=== PATIENT | female | born 1955 | race Caucasian/White ===

== ENCOUNTER 2017-08-29 14:52 | Observation (INO) | payer OTHER ==
[~2017-08-29] VITALS: Ht 167.6 cm; Wt 60.9 kg
--- NOTE | ~2017-08-29 | DS ---
PATIENT:KAYA GARDNER :51 MEDICAL RECORD: [id number] DISCHARGE SUMMARY ADMISSION DATE: 08/29/17 DISCHARGE DATE: 08/30/17 DIAGNOSES: 1. Ventricular fibrillation. 2. ICD. 3. Cardiomyopathy. HISTORY OF PRESENT ILLNESS: Mrs. Gardner is visiting from out of town. She has a nonischemic cardiomyopathy. [facility] She had a defibrillator discharge times 2. She presented to the Emergency Room. Her defibrillator was interrogated. She had ventricular fibrillation. With the addition of Cordarone, she had an IV load as well as p.o. She had no further dysrhythmias, was discharged home with Cordarone 200 mg b.i.d. She will follow up with her location worker in [place] in 2 days. TRANSINT:[id number] Voice Confirmation ID: [id number] DOCUMENT ID: [id number] NOHEMI MEDINA MD at 0956 CC: [id number] DICTATION DATE: 08/30/17 0843 MOTOR ADJUSTER: 08/30/17 1214 DIS IN 08/30/17 [id number] [place] [address]
--- NOTE | ~2017-08-29 | HP ---
PATIENT: KAYA GARDNER MEDICAL RECORD: [id number] ACCOUNT: [id number] LOCATION:[address] : 51 ADMISSION DATE: 08/29/17 HISTORY AND PHYSICAL EXAMINATION DIAGNOSES: 1. Ventricular fibrillation. 2. Status post ICD discharge. 3. Cardiomyopathy. 4. Paroxysmal atrial fibrillation. 5. Status post Watchman device. HISTORY OF PRESENT ILLNESS: Mrs. Gardner was visiting from [facility] at the [facility] and had her defibrillator go off. She presented to the Emergency Room. She had another episode of defibrillator going off. She was initially in atrial fibrillation. When she came here, she was given IV Cordarone. She is now in sinus rhythm, paced with interrogation of her [employer] device, she had episodes of ventricular fibrillation. The device acted appropriately. REVIEW OF SYSTEMS: The patient reports easy bruising but reports no swollen glands. The patient reports no fever, no night sweats, no significant weight gain, no significant weight loss. No significant exercise tolerance. The patient reports no dry eyes, no irritation, no vision change. Patient reports no difficulty hearing and no ear pain. Patient reports no frequent nose bleeds or nose and sinus problems. Patient reports on arm pain on exertion. No shortness of breath while lying down. No history of heart murmur. Patient reports no cough, no wheezing or coughing up blood. Patient reports no abdominal pain, no vomiting. Normal appetite. No diarrhea and not vomiting blood. No nausea and no constipation. Patient reports no incontinence. No difficulty urinating. No hematuria. No increased frequency. Patient reports no muscle aches. No weakness, no arthralgias, no back pain. No swelling of the extremities. Patient reports no abnormal mole, no jaundice, no rashes. Reports no loss of consciousness. No weakness and no numbness. No seizures, dizziness, or headaches. The patient reports no depression, no sleep disturbance, feeling safe in a relationship and no alcohol abuse. Patient reports on fatigue. Reports no runny nose or sinus pressure. No itching, no hives, and no frequent sneezing. PHYSICAL EXAMINATION: GENERAL APPEARANCE: Well-nourished, well-developed, appears stated age. Level of distress, comfortable. PSYCHIATRIC: Mental status, alert, normal affect. Orientation, oriented to time, place and person. EYES: Lids and conjunctiva, noninjected. No discharge, no pallor. ENT: Lips, teeth, gums, normal dentition. Oropharynx, no cyanosis, no pallor. NECK: Carotid arteries, bilateral normal upstroke, no bruits, no thrills. JUGULAR VEINS: No jugular venous pressure or distention. CERVICAL LYMPH NODES: Nontender, nonenlarged. THYROID: Not enlarged. Nontender. No nodules. LUNGS: Respiratory effort, unlabored. CHEST: Normal curvature. No thoracic deformity. No chest wall tenderness. Percussion, resonant. Auscultation, clear. No wheezes, no rales, no rhonchi. CARDIOVASCULAR: Precordial exam, nondisplaced. No heaves or pericardial thrills. Rate and rhythm, regular. Heart sounds, normal S1, normal S2. No S3, no gallop, no rub. Systolic murmur, not heard. Diastolic murmur, not heard. HISTORY AND PHYSICAL [id number] KAYA GARDNER EXTREMITIES: No cyanosis, no edema. Peripheral pulses, full and equal in all extremities, except as noted. No bruits appreciated. ABDOMEN: Soft, nondistended. Normal aorta. No bruit. Nontender. No masses. Liver, nontender, no hepatomegaly. Spleen, nontender, no splenomegaly. MUSCULOSKELETAL: No joint tenderness. No joint swelling. No erythema. NEUROLOGICAL: Normal gait, normal strength, normal tone. SKIN: Warm and dry. OVERALL IMPRESSION: Cardiomyopathy with sudden cardiac , ventricular fibrillation with appropriate ICD discharge. At this time, we will load her on p.o. Cordarone. Continue the load with the IV Cordarone. Further care depends upon the results with the Cordarone. TRANSINT:[id number] Voice Confirmation ID: [id number] DOCUMENT ID: [id number] NOHEMI MEDINA MD at 0844 CC: [id number] DICTATION DATE: 08/29/17 160 OFFICE MACHINE PUNCH OPERATOR: 08/29/17 1644 ADM IN [id number] [place] [address]
[2017-08-29 15:45] LABS: BASOPHILS 0.1 % (0-2); EOSINOPHILS 0.5 % (0-7); HEMATOCRIT 34.5 % (36.0-48.0); HEMOGLOBIN 10.7 g/dL (12-16); IMMATURE GRANULOCYTES 0.2 % (0-5); LYMPHOCYTES 3.7 % (15-50); MCH 28.2 pg (26.0-34.0); MCV 90.8 fL (80.0-100.0); MEAN PLATELET VOLUME 9.4 fL (7.4-10.4); MONOCYTES 0.4 % (2-11); NEUTROPHILS 95.1 % (40-80); PLATELET COUNT 348 10x3/uL (130-400); RDW 15.4 % (11.5-14.5)
[2017-08-29 15:53] LABS: INR 1.2 (0.85-1.17); PROTIME 14.8 SECONDS (11.6-15.0)
[2017-08-29 15:55] LABS: D-DIMER-QUANTITATIVE 3.2 ug/mLFEU (0.20-0.54)
[2017-08-29 15:56] LABS: ALBUMIN 3.4 g/dL (3.4-5.0); ALKALINE PHOSPHATASE 291 U/L (46-116); ALT (SGPT) 33 U/L (10-68); BILIRUBIN - TOTAL 1.12 mg/dL (0.2-1.3); CALC OSMOLALITY 288 mosm/kg (275-300); CALCIUM 9.7 mg/dL (8.5-10.1); CARBON DIOXIDE 24.3 mmol/L (21.0-32.0); CHLORIDE - SERUM 96 mmol/L (98-107); CREATININE - SERUM 1.7 mg/dL (0.6-1.3); GLUCOSE 194 mg/dL (74-106); POTASSIUM - SERUM 5.4 mmol/L (3.5-5.1); PROTEIN - SERUM 8.4 g/dL (6.4-8.2); SODIUM 138 mmol/L (136-145); UREA NITROGEN 34 mg/dL (7-18); eGFR NON AFRICAN AMERICAN 32 mL/min (90-120)
[2017-08-29 16:06] LABS: LIPASE 513 U/L (73-393); PRO BNP 9694 pg/mL (0-125); THYROID STIMULATING HORMONE 1.25 uIU/mL (0.36-3.74)
[2017-08-29 16:07] LABS: TROPONIN-I < 0.017 ng/mL (0.000-0.060)
[2017-08-29 18:46] VITALS: BP 72/44; Ht 167.6 cm; Wt 60.9 kg
[2017-08-29 19:00] VITALS: BP 68/30
[2017-08-29] MEDS ORDERED: COREG6.25 MG PO (20:02)
[2017-08-29] MEDS ORDERED: PROTONIX40 MG PO (20:02)
[2017-08-29] MEDS ORDERED: VASOTEC2.5 MG PO (20:03)
[2017-08-29] MEDS ORDERED: LIPITOR20 MG PO (20:04)
[2017-08-29] MEDS ORDERED: SYNTHROID50 MCG PO (20:05)
[2017-08-29] MEDS ORDERED: GLUCOPHAGE500 MG PO (20:05)
[2017-08-29] MEDS ORDERED: BAYER CHEWABLE81 MG PO (20:05)
[2017-08-29] MEDS ORDERED: BUMEX2 MG PO (20:06)
[2017-08-29] MEDS ORDERED: PLAVIX75 MG PO (20:08)
[2017-08-29] MEDS ORDERED: LANOXIN125 MCG PO (20:08)
[2017-08-29] MEDS ORDERED: K-DUR20 MEQ PO (20:09)
[2017-08-29] MEDS ORDERED: ALDACTONE25 MG PO (20:10)
[2017-08-29] MEDS ORDERED: CARAFATE1 G PO (20:10)
[2017-08-29] MEDS ORDERED: MAG-OX 400 MG400 MG PO (20:11)
[2017-08-29] MEDS ORDERED: K-PHOS250 MG PO (20:11)
[2017-08-29] MEDS ORDERED: METOLAZONE2.5 MG PO (20:13)
[2017-08-29] MEDS ORDERED: CALCIUM 500 + D1 TAB PO (20:14)
[2017-08-30] VITALS: BP 94/44
[2017-08-30 04:00] VITALS: BP 88/48
[2017-08-30 07:53] VITALS: BP 85/53
[2017-08-30] MEDS ORDERED: CORDARONE200 MG PO (10:00)
== END 2017-08-30 10:54 | disposition home or self-care (01) ==
LOC: D.ER 14:52 → D.EDHOLD 16:45 → OBSVTIME 16:45 → D.M2 17:05
PROVIDERS: Family Medicine
DX: I49.01 Ventricular fibrillation (principal); I42.9 Cardiomyopathy, unspecified; I48.0 Paroxysmal atrial fibrillation; I46.2 Cardiac arrest due to underlying cardiac condition; Z95.810 Presence of automatic (implantable) cardiac defibrillator